=== PATIENT | male | born 1970 | race Caucasian/White ===

== ENCOUNTER 2025-01-11 11:44 | Emergency (ER) | payer OTHER, SELFPAY ==
[2025-01-11 11:59] VITALS: BP 141/100
--- NOTE | 2025-01-11 13:05 | ED.GENMED ---
History of Present Illness
General
Chief Complaint: Musculo-Skeletal Complaint
Source: patient
Time Seen by Provider: 01/11/25 12:32
History of Present Illness
History of Present Illness:
54-year-old male presenting to the ER for evaluation after he was moving his son to college when he stepped down from his car and twisted his right ankle, now with pain and swelling mainly over the lateral aspect of the ankle. Patient states he is
still able to ambulate but that he does have this while doing so. He did not take anything for pain prior to arrival and declines anything currently.
Past History
Past History
ED Past Medical History: None
ED Past Surgical History: Orthopedic
Social History
Tobacco: Non-smoker
Alcohol: None
Drug: None
Personal:
Living: with family
Employment: Employed (Desk work)
Review of Systems
Review of Systems
All Other Systems: ROS reviewed and negative except as documented in HPI and ROS
Phy Exam
Physical Exam
Physical Exam:
GENERAL: Alert , in no apparent distress
EYE: conjunctiva clear
Head: Normocephalic atraumatic
NECK: Supple,
ENT: mmm.
LUNGS: no acute respiratory distress
NEUROLOGICAL: Alert and oriented
SKIN: Warm and dry, skin intact.
MUSCULOSKELETAL: Right foot/ankle : Soft tissue swelling around the lateral ankle with tenderness over this area. Calcaneal tendon intact. No proximal tib-fib tenderness. Cap refill less than 2 seconds. Easily palpable pedal and tibial pulse.
Sensation grossly intact to light touch.
PSYCH: Normal and appropriate interaction.
Scores
Heart Failure Risk
Heart Failure Risk Score: Not Applicable
Heart Score for Chest Pain Patients
STEMI patient?: Not applicable
Withdrawal Assessment of Alcohol
Withdrawal Assessment Completed?: Not applicable
Course
Orders/Labs/Results
Orders:
Orders
01/11/25 12:01
CR Ankle - Right Min 3 Views * Urgent
Comment:
Reason For Exam: fall, swelling
01/11/25 13:07
Air Splint Right-Treatment ONCE
Vital Signs
Initial and Last Documented VS:
Initial Vital Signs
Temp Pulse Resp BP Pulse Ox
98.1 F 83 18 141/100 97
01/11/25 11:59 01/11/25 11:59 01/11/25 11:59 01/11/25 11:59 01/11/25 11:59
Last Documented Vital Signs
Temp Pulse Resp BP Pulse Ox
98.1 F 83 18 141/100 97
01/11/25 11:59 01/11/25 11:59 01/11/25 11:59 01/11/25 11:59 01/11/25 13:06
MDM/Problems Addressed
Differential Diagnosis Includes:
Sprain
Fracture
Contusion
Tendon injury
MDM/Problems Addressed:
54-year-old male presented the ER for evaluation of right ankle pain and swelling after he excellently twisted it yesterday. X-ray ordered shows no acute fracture. Suspect sprain is most likely. RICE recommendations discussed. Will place in an
air splint. Orthopedics follow-up as needed. Stable for discharge.
*Radiology
Radiology exam reviewed: preliminary read by ED provider (No fracture)
*Pulse Oximetry
SaO2: 97
Oxygen Mode of Delivery: Room air
Patient hypoxic: no
*Critical Care Note
Total Time (30-74mins, 75-104mins- exclusive of procedures): Not Applicable
ED Attending Note
-
Portions of this chart may have been created with voice recognition software.� Occasional wrong word or��sound alike� substitutions may have occurred due to the inherent limitations of voice recognition software.
Discharge Plan
Departure
Patient Disposition: Home (Routine Discharge)
Date of Disposition: 01/11/25
Time of Disposition: 13:05
Patient with high blood pressure during this ER visit?: Yes
Discharge Problem:
Right ankle sprain
Instructions: Sprain (DC)
Prescriptions:
No Action
No Current Medications
0
Interventions
Interventions:
*Risk Screen - Suicide Last Done: 01/11/25 11:59
*Nursing Disposition Last Done: 01/11/25 13:40
ED-Musculoskeletal Assessment Last Done: 01/11/25 12:30
Discharge Date and Time
Discharge Date/Time: 01/11/25 13:40
Print Language: UPPER SORBIAN
== END 2025-01-11 13:40 | disposition home or self-care (01) ==
LOC: EMR 11:44
PROVIDERS: EMERGENCY PHYSICIAN Student in an Organized Health Care Education/Training Program
DX: S93.401A Sprain of unspecified ligament of right ankle, initial encounter (principal); X50.1XXA Overexertion from prolonged static or awkward postures, initial encounter
CPT/HCPCS: 99283; 29515; 73610